=== PATIENT | female | born 1995 | race Caucasian/White ===

== ENCOUNTER 2016-10-25 14:53 | Inpatient (IN) | payer OTHER ==
[~2016-10-25] VITALS: Ht 165.1 cm; Wt 106.6 kg
[2016-10-25 16:07] LABS: HEMOGLOBIN 12.3 gm/dl (12.3-15.3); RED BLOOD COUNT 4.45 M/UL (4.00-5.10)
[2016-10-25 16:11] LABS: BUN/CREATININE RATIO 24 (0-10)
[2016-10-25 22:37] LABS: BUN/CREATININE RATIO 22 (0-10)
[2016-10-26 06:10] LABS: HEMOGLOBIN 11.6 gm/dl (12.3-15.3); RED BLOOD COUNT 4.22 M/UL (4.00-5.10)
[2016-10-26 06:11] LABS: WHITE BLOOD COUNT 19.4 K/UL (4.5-11.0)
[2016-10-26 06:28] LABS: BUN/CREATININE RATIO 14 (0-10)
[2016-10-27 05:23] LABS: HEMOGLOBIN 10.4 gm/dl (12.3-15.3); RED BLOOD COUNT 3.81 M/UL (4.00-5.10)
[2016-10-27 05:41] LABS: BUN/CREATININE RATIO 20 (0-10)
[2016-10-27] MEDS ORDERED: ZYVOX600 MG PO (18:47)
[2016-10-27] MEDS ORDERED: COLACE 100MG C100 MG PO (18:48)
[2016-10-27] MEDS ORDERED: NORCO 7.5-3251 EACH PO (18:48)
== END 2016-10-27 19:26 | disposition home or self-care (01) | DRG 854 ==
LOC: ER1 14:53 → MED SURG 4 10-26 00:49 → ZEROF 10-26 00:49 → MED SURG 4 10-26 07:37
PROVIDERS: Emergency Medicine; Internal Medicine; Surgery; ADMIT Internal Medicine
PROC: 0J9D0ZZ Drainage of Right Upper Arm Subcutaneous Tissue and Fascia, Open Approach (ICD-10-PCS; principal; 2016-10-26 13:45)
DX: A41.9 Sepsis, unspecified organism (principal); L03.111 Cellulitis of right axilla; B95.62 Methicillin resistant Staphylococcus aureus infection as the cause of diseases classified elsewhere; E66.9 Obesity, unspecified; Z68.39 Body mass index [BMI] 39.0-39.9, adult; Z83.3 Family history of diabetes mellitus
CPT/HCPCS: 36415; 80048; 80053; 80202; 80307; 83605; 84484; 84703; 85025; 85027; 87040; 87070; 87075; 87077; 87186; 87205; 96361; 96365; 96375; 99285; J1100; J1200; J1885; J2250; J2270; J2405; J2407; J2930; J3010; J3370; J7030; J7050; J7070; J7120; Q9962